=== PATIENT | female | born 1950 | race Caucasian/White ===

== ENCOUNTER 2017-02-09 14:13 | Observation (INO) | payer MEDICARE ==
[2017-02-09] MEDS ORDERED: Diltiazem IV VIAL* 125 MG in D5W 100 ML BAG* 100 ML IV ONE ×6 (16:23)
[2017-02-09] MEDS ORDERED: Diltiazem IV* 5 MG/ML 5 ML VIAL (for loading dose/IV Push) (25 MG) IV SLOW PU ONE (16:23)
[2017-02-09] MEDS ORDERED: Diltiazem DRIP* 100 MG/100 ML ADDV.BAG IVPB ONE (16:27)
[2017-02-09 16:29] LABS: Hematocrit 40 % (35-47); Hemoglobin 13.3 g/dl (12.0-16.0); Mean Corpuscular HGB Conc 33 g/dl (31-36); Mean Corpuscular Hemoglobin 31 pg (27-31); Mean Corpuscular Volume 93 fL (80-97); Mean Platelet Volume 10 um3 (7.4-10.4); Red Blood Count 4.31 10^6/ul (4.0-5.4); Red Cell Distribution Width 13 % (10.5-15); White Blood Count 11.2 10^3/ul (3.5-10.8)
[2017-02-09 16:32] LABS: Troponin I 0.01 ng/mL (<0.04)
[2017-02-09 16:44] LABS: TSH (Thyroid Stimulating Horm) 2.42 mcIU/mL (0.34-5.60)
[2017-02-09 16:45] LABS: Albumin 4.1 g/dL (3.2-5.2); Calcium 9.1 mg/dL (8.6-10.3); EGFR African American 93.4 (>60); EGFR Non-African American 72.6 (>60); Potassium 3.3 mmol/L (3.5-5.0); Total Bilirubin 0.3 mg/dL (0.2-1.0); Total Protein 7.1 g/dL (6.4-8.9)
[2017-02-09] MEDS ORDERED: Potassium Chlor TAB* 20 MEQ TAB.ER PO ONE (19:17)
[2017-02-09] MEDS ORDERED: Dextrose 50% Syringe 50 ML* 25 GM/50 ML SYRINGE IV PUSH PRN (19:18)
[2017-02-09] MEDS ORDERED: Rivaroxaban TAB(*) 10 MG PO ONE (19:22)
[2017-02-09] MEDS: acetaZOLAMIDE TAB* 250 MG PO SCH (21:00)
[2017-02-09] MEDS ORDERED: Latanoprost 0.005%* 2.5 ml BTL BOTH EYES SCH (21:00)
--- NOTE | 2017-02-09 22:02 | HP ---
HOSPITAL MEDICINE HISTORY AND PHYSICAL: DATE OF ADMISSION: 02/09/17 PRIMARY CARE PHYSICIAN: Dr. Sifuentes. ATTENDING PHYSICIAN: DO John Franco (dictation provided by Radha Mckinley NP ) CHIEF COMPLAINT: Rapid atrial fibrillation. HISTORY OF PRESENT ILLNESS: Ms. Patricia is a 67-year-old female with a past medical history of diabetes, hypertension, smoking with current 1 pack per day smoking history, who presents to the hospital today with concern for rapid atrial fibrillation. Ms. Patricia was following up with her primary care physician per routine for medication followup when it was determined that her heart rate was rapid on cardiac auscultation. The patient had an EKG in the office, which showed rapid atrial fibrillation with a heart rate of 130s. The patient was completely asymptomatic. She denied any chest pain or any palpitations. She states in recent weeks, she has been feeling well. She had recently returned from a trip to [place] with her family. While there, she had had an episode where she swallowed some water while swimming in a pool and had some chest discomfort after that, but none recently. She has no report of pain in her lower extremities. No report of shortness of breath. In the emergency room, Ms. Patricia was confirmed to be in rapid atrial fibrillation with a heart rate in the 130s. She has a mild hypokalemia. Her magnesium is normal. Troponin is normal. PAST MEDICAL HISTORY: 1. Type 2 diabetes, [id number]. 2. Hyperlipidemia. 3. Hypothyroidism. 4. Glaucoma. 5. Hypertension. 6. History of dysfunctional uterine bleeding secondary to proliferative endometrium. 7. History of right and left total knee replacement. MEDICATIONS: 1. Ranitidine 150 mg p.o. daily. 2. Ascorbic acid 500 mg p.o. daily. 3. Multivitamin with mineral 1 tab p.o. daily. 4. Metformin 500 mg p.o. daily. 5. Magnesium oxide 400 mg p.o. daily. 6. Lisinopril 40 mg p.o. q.a.m. 7. Levothyroxine 75 mcg p.o. daily. 8. Latanoprost 0.005% 1 drop both eyes at bedtime. 9. Rosuvastatin 5 mg p.o. daily. 10. [place]-3 fatty acid 1000 mg p.o. daily. 11. Coenzyme Q10 one cap p.o. daily. 12. Chantix 1 pack as directed. 13. Amlodipine 10 mg p.o. q.a.m. 14. Diamox 500 mg p.o. b.i.d. ALLERGIES: CAPTOPRIL and CIPROFLOXACIN. FAMILY HISTORY: The patient reports that her mom related to pneumonia at 63. Dad related to heart rate at 64. She has a brother who has had atrial fibrillation and a heart attack, still alive and a sister who has had a stent placed. Her healthcare proxy is her . SOCIAL HISTORY: The patient is a continued 1 pack a day smoker and she has been smoking for decades. She did quit not too long ago for several years but had resumed smoking recently. She has been started on Chantix with Dr. Sifuentes today. No report of alcohol or drug use. REVIEW OF SYSTEMS: A 14-point review of systems was completed with Ms. Patricia and all those not mentioned above were negative. PHYSICAL EXAMINATION GENERAL: Ms. Patricia is sitting up in the bed. She is in no acute distress. She is in calm and cooperative to my examination. VITAL SIGNS: Temperature 98.1, heart rate 112, respiratory rate 20, O2 saturation 96% on room air, blood pressure 132/59. LUNGS: Clear to auscultation bilaterally with no accessory muscle use and good aeration. HEART: S1, S2. No murmur, rub, or gallop and regular. ABDOMEN: Soft, nontender with bowel sounds positive x4. EXTREMITIES: No cyanosis or edema. NEURO: She is alert and oriented x3. She moves all extremities equally. There is no facial asymmetry or focal weakness. Extraocular movements are intact. SKIN: Intact. LABORATORY DATA/DIAGNOSTIC STUDIES: Sodium 139, potassium 3.3, chloride 112, serum bicarbonate 19, BUN 15, creatinine 0.79, glucose 89, lactic acid 1. Troponin 0.01. TSH 2.42. WBC 11.2, hemoglobin 13.3, hematocrit 40, platelet count 169. EKG shows rapid atrial fibrillation with heart rate about 130. ASSESSMENT: Ms. Patricia is a 67-year-old female with a past medical history of diabetes, hypertension, hyperlipidemia, who presents today to the hospital with concern for rapid atrial fibrillation. Our plans are for observation in the hospital overnight for the followin. Rapid atrial fibrillation: The patient has been admitted to the intensive care unit for titration of Cardizem drip, which was started in the emergency department. Plan to titrate that overnight and then switch to oral agents as tolerated. The patient will have a transthoracic echocardiogram tomorrow and she will be started on Eliquis and I have reviewed the risks and benefits of anticoagulation with her. Based on her CHADS2 score, she would benefit from anticoagulation for stroke prevention. I suspect that the patient's long-term smoking history has put her at risk for atrial fibrillation. She does have a low potassium and I will replete that. She is already on magnesium supplementation. We will continue with that. Her magnesium is normal. She denies any alcohol use, but does drink 2 cups of coffee per day. I have advise her that she might benefit from stopping caffeine use altogether or at least decreasing it and of course, I have advised her to stop smoking as well. 2. Type 2 diabetes. Plan to add on a hemoglobin A1c and she will have blood glucoses q.a.c. with lispro sliding scale insulin and a consistent carbohydrate diet. 3. Hypertension. Plan to hold amlodipine. Continue lisinopril as we use Cardizem to control her atrial fibrillation. 4. DVT prophylaxis with Xarelto. 5. Code status is full code. TIME SPENT: Approximately 60 minutes were spent on the admission of this patient, more than half the time spent with her at the bedside reviewing the events leading up to this hospitalization, performing the physical examination, and reviewing the plan of care. RADHA MCKINLEY NP CC: Dr. Sifuentes * [id number]/CPS #: [id number] SHANTA
--- NOTE | 2017-02-09 22:27 | ED ---
Von [place] Erika, scribed for Messi Gomez MD on 02/09/17 at 1640 . Palpitations / Dysrhythmia - HPI Summary HPI Summary: Patient is a 67-year-old female presenting to the ED with a CC of irregular heart rate of unknown onset. Patient reports she was at her PCP today for a scheduled appointment, and was told she was in A Fib. Patient does report she was recently on vacation in hot weather and noticed SOB with exertion there. She also reports she has had chest pains the in the past 2 days, and states pain "feels like it is in the lungs" and back. Pt denies chest pain today. Pt also denies palpitations. She denies similar episodes in the past. Hx HTN. - History of Current Complaint Chief Complaint: EDDysrhythmPalp Time Seen by Provider: 02/09/17 16:13 Hx Obtained From: Patient Onset/Duration: Still Present Timing: Constant Severity Currently: Moderate Character: Fast, Irregular Alleviating: Nothing Associated Signs & Symptoms: Chest Pain, Shortness of Breath - Allergy/Home Medications Allergies/Adverse Reactions: Allergies Allergy/AdvReac Type Severity Reaction Status Date / Time Captopril Allergy Intermediate Nausea And Verified 02/09/17 14:19 Vomiting Ciprofloxacin [From Cipro] Allergy Nausea Verified 02/09/17 14:19 Home Medications: Home Medications Coenzyme [id number] [Co Q-10 Plus] 1 cap PO DAILY 02/09/17 [History Confirmed 02/09/17] Magnesium Oxide (mg Supplement [Magnesium] 400 mg PO DAILY 02/09/17 [History Confirmed 02/09/17] Metformin ER (NF) 500 mg PO DAILY 02/09/17 [History Confirmed 02/09/17] Multivitamins/Minerals TAB* [Theragran/minerals TAB*] 1 tab PO DAILY 02/09/17 [ History Confirmed 02/09/17] [place]-3 Fatty Acids (Nf) [Fish Oil (NF)] 1,000 mg PO DAILY 02/09/17 [History Confirmed 02/09/17] Rosuvastatin (NF) [Crestor (NF)] 5 mg PO DAILY 02/09/17 [History Confirmed 02/09] Varenicline Tartrate [Chantix Starting M... 0.5 mg X 11 & 1 mg X 42] 1 shayne PO DAILY 02/09/17 [History Confirmed 02/09/17] PMH/Surg Hx/FS Hx/Imm Hx Endocrine/Hematology History: Reports: Hx Diabetes - TYPE 2, Hx Thyroid Disease - ON DAILY MEDS - HYPOTHYROID Cardiovascular History: Reports: Hx Hypertension - control with meds GI History: Reports: Hx Gastroesophageal Reflux Disease - CONTROL WITH MEDS Musculoskeletal History: Reports: Hx Arthritis - KNEES, Other Musculoskeletal History - LEFT KNEE REPLACEMENT - 07/08/2015 Sensory History: Reports: Hx Cataracts - BILATERAL, Hx Contacts or Glasses - READING GLASSES, Hx Glaucoma - BILATERAL Denies: Hx Hearing Aid Opthamlomology History: Reports: Hx Cataracts - BILATERAL, Hx Contacts or Glasses - READING GLASSES, Hx Glaucoma - BILATERAL - Cancer History Hx Chemotherapy: No Hx Radiation Therapy: No - Surgical History Surgery Procedure, Year, and Place: CATARACT RIGHT AND LEFT EYE-2014- [facility] Hx Anesthesia Reactions: Yes - NAUSEA Infectious Disease History: No Infectious Disease History: Denies: Traveled Outside the [place] in Last 30 Days - Family History Known Family History: Positive: Cardiac Disease, Hypertension, Diabetes Family History: Denies FHx breast cancer - Social History Alcohol Use: None Hx Substance Use: No Substance Use Type: Reports: None Hx Tobacco Use: Yes Smoking Status (MU): Heavy Every Day Tobacco Smoker Type: Cigarettes Amount Used/How Often: 1PPD 40+ Length of Time of Smoking/Using Tobacco: 40+ YEARS Have You Smoked in the Last Year: Yes Review of Systems Cardiovascular: Other - irregular and fast heart rate Positive: Chest Pain. Negative: Palpitations Positive: Shortness Of Breath All Other Systems Reviewed And Are Negative: Yes Physical Exam Triage Information Reviewed: Yes Vital Signs On Initial Exam: Initial Vitals Temp Pulse Resp BP Pulse Ox 97.8 F 106 20 130/70 100 02/09/17 14:19 02/09/17 14:19 02/09/17 14:19 02/09/17 14:19 02/09/17 14:19 Vital Signs Reviewed: Yes Appearance: Positive: Well-Appearing, No Pain Distress, Obese Skin: Positive: Warm, Skin Color Reflects Adequate Perfusion, Dry Head/Face: Positive: Normal Head/Face Inspection Eyes: Positive: Normal ENT: Positive: Normal ENT inspection Neck: Positive: Supple, Nontender Respiratory/Lung Sounds: Positive: Clear to Auscultation, Breath Sounds Present Cardiovascular: Positive: Tachycardia - with irregularly irregular rhythm Abdomen Description: Positive: Nontender, Soft Bowel Sounds: Positive: Present Musculoskeletal: Positive: Normal. Negative: Edema Left, Edema Right Neurological: Positive: Normal Psychiatric: Positive: Affect/Mood Appropriate - [place] Coma Scale Coma Scale Total: 15 Diagnostics - Vital Signs Vital Signs Temp Pulse Resp BP Pulse Ox 02/09/17 15:00 97.6 F 127 17 153/82 98 02/09/17 14:19 97.8 F 106 20 130/70 100 - Laboratory Lab Results: Lab Results 02/09/17 02/09/17 02/09/17 Range/Units 15:30 15:30 15:30 WBC 11.2 H (3.5-10.8) 10^3/ul RBC 4.31 (4.0-5.4) 10^6/ul Hgb 13.3 (12.0-16.0) g/dl Hct 40 (35-47) % MCV 93 (80-97) fL MCH 31 (27-31) pg MCHC 33 (31-36) g/dl RDW 13 (10.5-15) % Plt Count 169 (150-450) 10^3/ul MPV 10 (7.4-10.4) um3 Neut % (Auto) 61.7 (38-83) % Lymph % (Auto) 25.9 (25-47) % [place] % (Auto) 9.1 H (1-9) % Eos % (Auto) 2.4 (0-6) % Baso % (Auto) 0.9 (0-2) % Absolute Neuts (auto) 6.9 (1.5-7.7) 10^3/ul Absolute Lymphs (auto) 2.9 (1.0-4.8) 10^3/ul Absolute Monos (auto) 1.0 H (0-0.8) 10^3/ul Absolute Eos (auto) 0.3 (0-0.6) 10^3/ul Absolute Basos (auto) 0.1 (0-0.2) 10^3/ul Absolute Nucleated RBC 0 10^3/ul Nucleated RBC % 0 Sodium 139 (133-145) mmol/L Potassium 3.3 L (3.5-5.0) mmol/L Chloride 112 H (101-111) mmol/L Carbon Dioxide 19 L (22-32) mmol/L Anion Gap 8 (2-11) mmol/L BUN 15 (6-24) mg/dL Creatinine 0.79 (0.51-0.95) mg/dL Est GFR ( Amer) 93.4 (>60) Est GFR (Non-Af Amer) 72.6 (>60) BUN/Creatinine Ratio 19.0 (8-20) Glucose 89 (70-100) mg/dL Lactic Acid 1.0 (0.5-2.0) mmol/L Calcium 9.1 (8.6-10.3) mg/dL Magnesium 2.0 (1.9-2.7) mg/dL Total Bilirubin 0.30 (0.2-1.0) mg/dL AST 11 L (13-39) U/L ALT 9 (7-52) U/L Alkaline Phosphatase 94 (34-104) U/L Troponin I 0.01 (<0.04) ng/mL Total Protein 7.1 (6.4-8.9) g/dL Albumin 4.1 (3.2-5.2) g/dL Globulin 3.0 (2-4) g/dL Albumin/Globulin Ratio 1.4 (1-3) TSH 2.42 (0.34-5.60) mcIU/mL Result Diagrams: 02/09/17 15:30 02/09/17 15:30 Lab Statement: Any lab studies that have been ordered have been reviewed, and results considered in the medical decision making process. - EKG 14:27 Cardiac Rate: Tachycardia - at 131 bpm EKG Rhythm: Atrial Fibrillation - with RVR Course/Dx - Course Course Of Treatment: She was very stabvle here and was slowed with cardizem. - Diagnoses Provider Diagnoses: Atrial fibrillation with rapid ventricular response - Physician Notifications Discussed Care Of Patient With: Dr. Kebede (hospitalist) at 17:28 - agrees to admit - Critical Care Time Critical Care Time: 30-74 min Discharge - Discharge Plan Condition: Stable Disposition: ADMITTED TO [facility] documentation as recorded by the Von cee Erika accurately reflects the service I personally performed and the decisions made by , Messi Gomez MD.
[2017-02-10] MEDS ORDERED: Diltiazem DRIP* 100 MG/100 ML ADDV.BAG IVPB ONE (00:17)
[2017-02-10] MEDS: Diltiazem DRIP* 100 MG/100 ML ADDV.BAG IVPB SCH ×2 (01:51→05:15)
[2017-02-10] MEDS ORDERED: Levothyroxine TAB* 75 MCG TAB PO SCH (06:00)
[2017-02-10] MEDS: acetaZOLAMIDE TAB* 250 MG PO SCH (07:39)
[2017-02-10] MEDS ORDERED: Perflutren Lipid Microsphere* 3 ML VIAL ONE (07:58)
--- NOTE | 2017-02-10 08:56 | PN ---
Subjective Date of Service: 02/10/17 Interval History: Ms. Patricia denies complaint, including chest pain, palpitations, SOB, nausea, or abdominal pain. She is eager for discharge to home. Family History: Unchanged from Admission Social History: Unchanged from Admission Past Medical History: Unchanged from Admission Objective Active Medications: Acetazolamide (Diamox Tab*) 500 mg PO BID [facility] Ascorbic Acid (Vitamin C Tab*) 500 mg PO DAILY [facility] Dextrose (D50w Syringe 50 Ml*) 12.5 gm IV PUSH .FOR FS < 60 - SS PRN Diltiazem HCl (Cardizem Tab*) 90 mg PO Q6HR [facility] Insulin Human Lispro (Humalog*) 0 units SUBCUT AC [facility] Latanoprost (Xalatan 0.005%*) 1 drop BOTH EYES BEDTIME [facility] Levothyroxine Sodium (Synthroid Tab*) 75 mcg PO 0600 [facility] Magnesium Oxide (Magox 400 Tab*) 400 mg PO DAILY [facility] Multivitamins/Minerals (Theragran/Minerals Tab*) 1 tab PO DAILY [facility] Potassium Chloride (Klor Con Er Tab*) 40 meq PO 2300 [facility] Rivaroxaban (Xarelto(*)) 20 mg PO 1700 [facility] Vital Signs 02/09/17 02/09/17 02/09/17 18:00 18:30 18:35 Temperature 97.8 F Pulse Rate 94 117 109 Respiratory 19 24 16 Rate Blood Pressure 117/63 130/75 130/75 (mmHg) O2 Sat by Pulse 98 98 Oximetry 02/09/17 02/09/17 02/09/17 18:52 18:56 18:57 Temperature 98.1 F Pulse Rate 118 110 Respiratory 20 18 Rate Blood Pressure 132/59 108/56 (mmHg) O2 Sat by Pulse 97 97 Oximetry 02/09/17 02/09/17 02/09/17 19:00 19:15 19:49 Temperature Pulse Rate 79 104 54 Respiratory 19 20 17 Rate Blood Pressure 124/107 132/59 118/93 (mmHg) O2 Sat by Pulse 98 96 96 Oximetry 02/09/17 02/09/17 02/09/17 20:00 20:15 20:19 Temperature 98.4 F Pulse Rate 96 99 Respiratory 18 27 19 Rate Blood Pressure 111/60 82/30 128/76 (mmHg) O2 Sat by Pulse 95 95 Oximetry 05/17/17 05/17/17 05/17/17 20:30 20:45 20:49 Temperature Pulse Rate 72 Respiratory 21 21 Rate Blood Pressure 141/80 138/89 (mmHg) O2 Sat by Pulse 98 Oximetry 02/09/17 02/09/17 02/09/17 21:00 21:15 21:30 Temperature Pulse Rate 73 98 74 Respiratory 20 21 21 Rate Blood Pressure 120/76 137/99 137/93 (mmHg) O2 Sat by Pulse 98 97 97 Oximetry 02/09/17 02/09/17 02/09/17 21:45 22:00 22:15 Temperature Pulse Rate 96 64 86 Respiratory 20 19 22 Rate Blood Pressure 130/78 113/68 133/81 (mmHg) O2 Sat by Pulse 98 96 95 Oximetry 02/09/17 02/09/17 02/09/17 22:30 22:45 22:50 Temperature Pulse Rate 87 Respiratory 20 21 Rate Blood Pressure 117/57 114/69 (mmHg) O2 Sat by Pulse 94 Oximetry 02/09/17 02/09/17 02/09/17 23:00 23:15 23:30 Temperature Pulse Rate 108 58 Respiratory 19 20 Rate Blood Pressure 112/74 127/63 113/61 (mmHg) O2 Sat by Pulse 94 94 Oximetry 02/09/17 02/10/17 02/10/17 23:51 00:00 00:01 Temperature 97.4 F Pulse Rate 82 84 Respiratory 19 19 16 Rate Blood Pressure 114/51 (mmHg) O2 Sat by Pulse 96 96 Oximetry 02/10/17 02/10/17 02/10/17 00:28 00:30 01:00 Temperature Pulse Rate 113 93 73 Respiratory 26 19 19 Rate Blood Pressure 120/58 110/75 (mmHg) O2 Sat by Pulse 95 97 94 Oximetry 02/10/17 02/10/17 02/10/17 01:30 01:56 02:00 Temperature Pulse Rate 82 72 Respiratory 18 20 18 Rate Blood Pressure 101/60 112/68 (mmHg) O2 Sat by Pulse 95 93 Oximetry 02/10/17 02/10/17 02/10/17 02:30 03:00 03:30 Temperature Pulse Rate 77 72 64 Respiratory 19 20 19 Rate Blood Pressure 98/56 104/64 107/62 (mmHg) O2 Sat by Pulse 93 96 96 Oximetry 02/10/17 02/10/17 02/10/17 03:49 03:59 04:00 Temperature 98.2 F Pulse Rate 74 Respiratory 16 17 Rate Blood Pressure 115/61 (mmHg) O2 Sat by Pulse 97 Oximetry 02/10/17 02/10/17 02/10/17 04:30 04:48 05:00 Temperature Pulse Rate 72 75 Respiratory 18 19 18 Rate Blood Pressure 112/58 106/57 (mmHg) O2 Sat by Pulse 97 95 Oximetry 02/10/17 02/10/17 02/10/17 05:30 05:43 06:00 Temperature Pulse Rate 100 78 Respiratory 16 18 18 Rate Blood Pressure 110/70 112/75 (mmHg) O2 Sat by Pulse 95 95 Oximetry 02/10/17 02/10/17 02/10/17 06:30 07:00 07:24 Temperature 97.7 F Pulse Rate 65 90 Respiratory 18 20 Rate Blood Pressure 107/56 105/66 (mmHg) O2 Sat by Pulse 94 96 Oximetry 02/10/17 02/10/17 02/10/17 07:30 07:50 08:00 Temperature Pulse Rate 74 104 Respiratory 18 20 21 Rate Blood Pressure 112/68 120/76 (mmHg) O2 Sat by Pulse 95 95 Oximetry Oxygen Devices in Use Now: None Appearance: Female sitting up in chair in NAD Eyes: No Scleral Icterus Ears/Nose/Mouth/Throat: Mucous Membranes Moist Neck: Trachea Midline Respiratory: Symmetrical Chest Expansion and Respiratory Effort, Clear to Auscultation Cardiovascular: NL Sounds; No Murmurs; No JVD, No Edema Abdominal: NL Sounds; No Tenderness; No Distention Lymphatic: No Cervical Adenopathy Extremities: No Edema Skin: No Rash or Ulcers Neurological: Alert and Oriented x 3, NL Muscle Strength and Tone Nutrition: Taking PO's Result Diagrams: 02/09/17 15:30 02/09/17 15:30 Additional Lab and Data: Lab Results 02/09/17 02/09/17 02/09/17 Range/Units 15:30 15:30 15:30 WBC 11.2 H (3.5-10.8) 10^3/ul RBC 4.31 (4.0-5.4) 10^6/ul Hgb 13.3 (12.0-16.0) g/dl Hct 40 (35-47) % MCV 93 (80-97) fL MCH 31 (27-31) pg MCHC 33 (31-36) g/dl RDW 13 (10.5-15) % Plt Count 169 (150-450) 10^3/ul MPV 10 (7.4-10.4) um3 Neut % (Auto) 61.7 (38-83) % Lymph % (Auto) 25.9 (25-47) % [place] % (Auto) 9.1 H (1-9) % Eos % (Auto) 2.4 (0-6) % Baso % (Auto) 0.9 (0-2) % Absolute Neuts (auto) 6.9 (1.5-7.7) 10^3/ul Absolute Lymphs (auto) 2.9 (1.0-4.8) 10^3/ul Absolute Monos (auto) 1.0 H (0-0.8) 10^3/ul Absolute Eos (auto) 0.3 (0-0.6) 10^3/ul Absolute Basos (auto) 0.1 (0-0.2) 10^3/ul Absolute Nucleated RBC 0 10^3/ul Nucleated RBC % 0 Sodium 139 (133-145) mmol/L Potassium 3.3 L (3.5-5.0) mmol/L Chloride 112 H (101-111) mmol/L Carbon Dioxide 19 L (22-32) mmol/L Anion Gap 8 (2-11) mmol/L BUN 15 (6-24) mg/dL Creatinine 0.79 (0.51-0.95) mg/dL Est GFR ( Amer) 93.4 (>60) Est GFR (Non-Af Amer) 72.6 (>60) BUN/Creatinine Ratio 19.0 (8-20) Glucose 89 (70-100) mg/dL Lactic Acid 1.0 (0.5-2.0) mmol/L Calcium 9.1 (8.6-10.3) mg/dL Magnesium 2.0 (1.9-2.7) mg/dL Total Bilirubin 0.30 (0.2-1.0) mg/dL AST 11 L (13-39) U/L ALT 9 (7-52) U/L Alkaline Phosphatase 94 (34-104) U/L Troponin I 0.01 (<0.04) ng/mL Total Protein 7.1 (6.4-8.9) g/dL Albumin 4.1 (3.2-5.2) g/dL Globulin 3.0 (2-4) g/dL Albumin/Globulin Ratio 1.4 (1-3) TSH 2.42 (0.34-5.60) mcIU/mL Microbiology and Other Data: Microbiology 02/09/17 19:46 Nasal Screen MRSA (PCR)([facility]) - Final Nasal Mrsa Negative Assess/Plan/Problems-Billing Assessment: Ms. Patricia is a 67 yo female with a PMH of smoking, DM, and HTN who was admitted on 02/09/17 with new afib with rapid ventricular response. - Patient Problems (1) Afib Comment: Rate controlled, remains in afib and continues to be asymptomatic. Echo shows intact wall motion/EF and no valvular abnormalities. Plan to switch to cardizem po at high dose as she needed 17mg/hr on cardizem gtt overnight. Continue xarelto. No indication for cardioversion as is asymptomatic. Will need at least 4 weeks of anticoagulation prior to any attempt at cardioversion given that the onset of afib is unknown. Follow up with cardiology. (2) HTN (hypertension) Comment: Hold lisinopril and amlodipine with acute switch to cardizem. Recommend to add back at least low dose lisinopril given hx of DM if possible at follow up with PCP if BP stable on cardizem. (3) Type II diabetes mellitus Comment: HgbA1c pending. Continue lispro SSI coverage with meals while inpatient and resume oral meds at discharge. (4) Cigarette nicotine dependence Comment: Smoking cessation strongly encouraged. Patient has prescription for chantix per PCP, which has worked well for her in the past. (5) DVT prophylaxis Comment: xarelto. (6) Full code status Status and Disposition: Switched to OBV. Discharge to home.
[2017-02-10] MEDS ORDERED: Ascorbic Acid TAB* 500 MG PO SCH (09:00)
[2017-02-10] MEDS ORDERED: amLODIPine TAB* 5 MG PO SCH (09:00)
[2017-02-10] MEDS ORDERED: Magnesium Oxide TAB* 400 MG PO SCH (09:00)
[2017-02-10] MEDS ORDERED: Multivitamins/Minerals TAB PO SCH (09:00)
[2017-02-10] MEDS ORDERED: Lisinopril TAB* 10 MG PO SCH (09:00)
[2017-02-10] MEDS: Diltiazem TAB* 30 MG PO SCH ×2 (09:13→12:04)
[2017-02-10] MEDS: Insulin LISPRO* 1 UNITS UNIT SUBCUT SCH ×2 (09:14→13:08)
--- NOTE | 2017-02-10 09:35 | ECHO ---
Patient: SIVAKUMAR CABALLERO [facility] Rec#: [id number] : 1950 Date: 02/10/2017 Age: 67y Height: 160.02 cm / 63.0 in Weight: 98.88 kg / 217.9 lbs Sex: F BSA: 2.01 Room#: ICU 1 Admit Date#: 02/09/2017 Type: Inpatient Referring: Radha Mckinley NP Reading: Albina Munoz MD Accessories Repairer: Petra Huffman RDCS,RDMS CC: Anel Sifuentes MD Transthoracic Echocardiogram Indication: Afib BP: 107/56 HR: 82 Rhythm: A-Fib Indications Atrial Fibrillation Findings History: HTN, HLD, DM, smoker Technical Comments: The study is technically limited due to the patient's smoking history. Completed 904 Left Ventricle: The left ventricular chamber size is normal. Moderate concentric left ventricular hypertrophy is observed. Global left ventricular wall motion and contractility are within normal limits. The estimated ejection fraction is 55-60%. The assessment of diastolic function is non-diagnostic. Left Atrium: The left atrium is mild to moderately dilated. Right Ventricle: The right ventricular chamber size and systolic function are within normal limits. The right ventricle wall thickness is moderately increased. Right Atrium: The right atrium is mild to moderately dilated. A patent foramen ovale is not demonstrated by agitated contrast. There is evidence of an atrial septal aneurysm. Aortic Valve: The aortic valve leaflets are mildly thickened. There is aortic annular calcification. There is no evidence of aortic regurgitation. There is no evidence of aortic stenosis. Mitral Valve: There is mitral annular calcification. There is a trace of mitral regurgitation. There is no evidence of mitral stenosis. Tricuspid Valve: The tricuspid valve leaflets are not thickened. There is trace tricuspid regurgitation. Unable to estimate the right ventricular systolic pressure. Pulmonic Valve: The pulmonic valve structure is not well visualized. There is no evidence of pulmonic regurgitation. Pericardium: There is no significant pericardial effusion. Aorta: The ascending aorta is not well visualized. There is no dilatation of the aortic arch. The aortic root is normal in size. There is plaque visualized in the descending aorta. Pulmonary Artery: The main pulmonary artery is not well visualized. Venous: The inferior vena cava appears normal in size. There is a greater than 50% respiratory change in the inferior vena cava dimension. Contrast: Definity was used to optimize study. A total of 4 ml was used Summary: There was not any prior study for comparison. Conclusions The left ventricular chamber size is normal. Moderate concentric left ventricular hypertrophy is observed. Global left ventricular wall motion and contractility are within normal limits. The estimated ejection fraction is 55-60%. The assessment of diastolic function is non-diagnostic. The left atrium is mild to moderately dilated. The right atrium is mild to moderately dilated. A patent foramen ovale is not demonstrated by agitated contrast. There is evidence of an atrial septal aneurysm. There is a trace of mitral regurgitation. There is trace tricuspid regurgitation. Measurements Name Value Normal Range RVIDd (AP) 2D 2.8 cm (0.9 - 2.6) RAd ISD 4CH 6 cm (3.4 - 4.9) RA (A4C)W 3 cm (2.9 - 4.6) IVSd (2D) 1.3 cm (0.6 - 1) LVPWd (2D) 1.5 cm (0.6 - 1) LVIDd (2D) 4.6 cm (3.6 - 5.4) LVIDs (2D) 3.2 cm - LV FS (2D) 30 % (25 - 45) Aortic Annulus 2 cm (1.4 - 2.6) Ao root diameter (2D) 2.2 cm (2.1 - 3.5) Aortic arch 2.8 cm (1.8 - 3.4) LA dimension (AP) 2D 4.9 cm (2.3 - 3.8) LAd ISD 4CH 6.5 cm (2.9 - 5.3) LA ISD 4CH W 6 cm (2.5 - 4.5) Name Value Normal Range LA ESV SP 4CH (A/L) 103.09 ml - LA ESV SP 2CH (A/L) 49.55 ml - LA ESV BP (A/L) 82.1 ml - LA ESV BP (A/L) index 41 ml/m2 - LA ESV SP 4CH (MOD) 95.82 ml - LA ESV SP 2CH (MOD) 47.55 ml - Name Value Normal Range MV E-wave Vmax 1.2 m/sec - MV deceleration time 226 msec - LV lateral e' Vmax 0.12 m/sec - LV E:e' lateral ratio 10 ratio - Name Value Normal Range AV Vmax 1.3 m/sec - AV peak gradient 7 mmHg - LVOT Vmax 0.9 m/sec - LVOT peak gradient 3.2 mmHg - LISSETTE Vmax 0.7 m/sec - Name Value Normal Range MV Vmax 1.3 m/sec - MV VTI 24.7 cm - MV peak gradient 7 mmHg - MV mean gradient 2.4 mmHg - MV PHT 70 msec - MVA (PHT) 3.1 cm2 - Name Value Normal Range RAP 8 mmHg - IVC diameter 2.1 cm - Name Value Normal Range PV Vmax 1.1 m/sec - PV peak gradient 5 mmHg -
[2017-02-10 14:06] VITALS: BP 117/56
[2017-02-10] MEDS ORDERED: Rivaroxaban TAB(*) 20 MG TAB PO SCH (17:00)
[2017-02-10] MEDS ORDERED: Rivaroxaban TAB(*) 10 MG PO ONE (19:21)
[2017-02-10] MEDS ORDERED: Potassium Chlor TAB* 20 MEQ TAB.ER PO SCH (23:00)
--- NOTE | 2017-02-11 02:01 | DS ---
[facility] MEDICINE DISCHARGE SUMMARY: DATE OF ADMISSION: 02/09/17 DATE OF DISCHARGE: 02/10/17 PRIMARY CARE PHYSICIAN: Dr. Sifuentes. ATTENDING PHYSICIAN: Cameron Chamorro MD *(dictation provided by Radha Mckinley NP ) PRIMARY DIAGNOSIS: New onset rapid atrial fibrillation. SECONDARY DIAGNOSES: 1. Type 2 diabetes, non-insulin dependent. 2. Hypertension. 3. Hyperlipidemia. 4. History of cigarette smoking. 5. Glaucoma. 6. History of dysfunctional uterine bleeding secondary to proliferative endometrium. 7. 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 MEDICATIONS AT THE TIME OF DISCHARGE: 1. Xarelto 20 mg p.o. daily. 2. Ranitidine 150 mg p.o. daily. 3. Ascorbic acid 500 mg p.o. daily. 4. Diltiazem CD 240 mg p.o. q.p.m. 5. Multivitamin with mineral 1 tab p.o. daily. 6. Metformin 500 mg p.o. daily. 7. Magnesium oxide 400 mg p.o. daily. 8. Levothyroxine 75 mcg p.o. daily. 9. Latanoprost 0.005% 1 drop both eyes at bedtime. 10. Rosuvastatin 5 mg p.o. daily. 11. [place]-3 fatty acid 1000 mg p.o. daily. 12. Co-enzyme Q10 1 cap p.o. daily. 13. Chantix as directed. 14. Diamox 500 mg p.o. b.i.d. Hold amlodipine and lisinopril. HOSPITAL COURSE: Ms. Patricia is a 67-year-old female with past medical history of diabetes, hypertension and hyperlipidemia as well as chronic cigarette smoking who presented to the hospital on 02/09/17 with concern for rapid atrial fibrillation. The patient had been at her primary care physician's office for routine visit when it was discovered that she had a rapid heart rate and then EKG revealed rapid atrial fibrillation. Ms. Patricia was admitted to the hospital. She was placed on a Cardizem drip. She required high dose of Cardizem to provide adequate rate control. She has been switched over now to oral Cardizem and will need 360 mg p.o. daily of the extended acting Cardizem based on the clinical course thus far. Her blood pressure has been stable on this dose. She has no lightheadedness or dizziness during this hospitalization having held her amlodipine and lisinopril due to the need to add on Cardizem. I think she would benefit from resumption at least low dose lisinopril and I will be referring this back to the primary care physician on reevaluation of her blood pressure as outpatient. The patient had a transthoracic echocardiogram that showed an intact ejection fraction, no wall motion abnormalities and no valvular abnormalities. Ms. Patricia has also been started on Xarelto for stroke prevention given her concomitant history of diabetes, hypertension, hyperlipidemia and her age of 67. Ms. Patricia is medically stable for discharge to home. She remains in atrial fibrillation, but she just had good rate control on the current dose of Cardizem. She has been strongly encouraged to stop smoking as I think that her underlying prolonged smoking history likely is her greatest risk factor for development of atrial fibrillation and also her greatest health risk overall. I have also strongly encouraged her to continue to follow up with Dr. Sifuentes regarding close management of her diabetes and hypertension. DISPOSITION: Home. DIET: Consistent carbohydrate. ACTIVITY: As tolerated. FOLLOWUP PLANS: Please follow up with Dr. Sifuentes. The patient has been instructed to call within 3 to 5 days for an appointment. TIME SPENT: Approximately 60 minutes was spent in the discharge of this patient , more than half that time was spent with her at the bedside reviewing the events leading up to this hospitalization, performing the physical examination, and reviewing the plan of care. RADHA MCKINLEY NP CC: Dr. Sifuentes* [id number]/[facility] #: [id number] SHANTA
== END 2017-02-10 14:50 | disposition home or self-care (01) ==
LOC: ED 14:13 → ICU 17:33 → INTOOBSV 17:33
PROVIDERS: ADMIT Hospitalist; ATTEND Internal Medicine
DX: I48.91 Unspecified atrial fibrillation (principal); E11.9 Type 2 diabetes mellitus without complications; I10 Essential (primary) hypertension; E78.5 Hyperlipidemia, unspecified; Z96.653 Presence of artificial knee joint, bilateral; H40.9 Unspecified glaucoma; I44.4 Left anterior fascicular block; I51.7 Cardiomegaly; F17.210 Nicotine dependence, cigarettes, uncomplicated; Z79.84 Long term (current) use of oral hypoglycemic drugs; Z79.899 Other long term (current) drug therapy; Z88.1 Allergy status to other antibiotic agents; Z88.8 Allergy status to other drugs, medicaments and biological substances
CPT/HCPCS: 36415; 80053; 83036; 83605; 83735; 84443; 84484; 85025; 85610; 87641; 93005; 93306; 96374; 96376; 99291; A9270-GY; C8929; G0378

== ENCOUNTER 2024-08-30 11:30 | Observation (INO) ==
[~2024-08-30 11:30] MED LIST: Metoclopramide 5 MG/ML VIAL (10 mg) IV PRN; NS 0.45% 1000 ml BAG 1,000 ML IV SCH; Naloxone 0.4 mg VIAL 0.4 mg/ml 1 ml VIAL IV PRN; Ondansetron 4 mg VIAL 2 MG/ML 2 ml VIAL IV PRN
[2024-08-30 12:29] LABS: Rapid COVID-19 Molecular Undetected (Undetected)
[2024-08-30] MEDS ORDERED: Tranexamic Acid 1 GM/100ML BAG 2,000 MG/200 ML BAG IV ONE (12:59)
[2024-08-30] MEDS ORDERED: ceFAZolin 2 GM PREMIX 2 GM/50 ML BAG ONE (12:59)
[2024-08-30] MEDS: Lactated Ringers 1000 ml BAG 1,000 ML IV SCH ×2 (13:21→18:30)
[2024-08-30] MEDS: Buffered Lidocaine 1% SYRIN 1 ml INTRADERM ONE (13:21)
[2024-08-30] MEDS ORDERED: ROPIVACAINE 5 MG/ML 30 ML BTL (0.5%) ONE (13:54)
[2024-08-30] MEDS ORDERED: fentaNYL 100 mcg/2 ml 50 MCG/ML VIAL ONE ×3 (13:57→17:24)
[2024-08-30] MEDS ORDERED: Midazolam 2 mg/2 ml VIAL 1 mg/ml 2 ml VIAL (2 mg) ONE (13:58)
[2024-08-30] MEDS ORDERED: Rocuronium 50 mg VIAL 10 mg/ml 5 ml VIAL (50 mg) ONE (14:01)
[2024-08-30] MEDS ORDERED: Metoprolol Tartrate 5 mg VIAL 5 ml VIAL (1 mg/ml) ONE (15:05)
[2024-08-30] MEDS ORDERED: Dexamethasone IV 4 MG/ML VIAL 1 ml VIAL ONE (15:08)
[2024-08-30] MEDS ORDERED: Ondansetron 4 mg VIAL 2 MG/ML 2 ml VIAL ONE (15:08)
[2024-08-30] MEDS ORDERED: HYDROmorphone 0.5 MG/0.5 ML SYRINGE ONE ×3 (15:12→16:00)
[2024-08-30] MEDS ORDERED: Lactulose 30 ml UDC PO PRN (15:25)
[2024-08-30] MEDS ORDERED: Morphine 2 MG/ML SYRINGE IV PRN (15:25)
[2024-08-30] MEDS ORDERED: Ondansetron ODT 4 mg TAB 4 MG TAB PO PRN (15:25)
[2024-08-30] MEDS ORDERED: Calcium Carb (TUMS) 500 mg CHEW TAB PO PRN (15:25)
[2024-08-30] MEDS ORDERED: Ondansetron 4 mg VIAL 2 MG/ML 2 ml VIAL IV PRN (15:25)
[2024-08-30] MEDS ORDERED: Magnesium Hydroxide LIQ 30 ML UDC PO PRN (15:25)
[2024-08-30] MEDS ORDERED: HYDROmorphone 1 MG/1 ML SYRINGE ONE (17:11)
[2024-08-30] MEDS: fentaNYL 100 mcg/2 ml 50 MCG/ML VIAL IV PRN (17:33)
[2024-08-30] MEDS: Magnesium Hydroxide LIQ 30 ML UDC PO SCH (22:26)
[2024-08-30] MEDS: Nystatin TOP POWDER 15 GM BTL TOPICAL SCH (22:26)
[2024-08-30] MEDS: ceFAZolin 2 GM PREMIX 2 GM/50 ML BAG IV SCH (22:36)
[2024-08-31] MEDS: Acetaminophen IV 1 GM/100ML 1,000 MG/100 ML BAG IV ONE (02:43)
[2024-08-31 06:38] LABS: Hematocrit 39.2 % (35-45); Hemoglobin 13.4 g/dL (11.5-14.3); Platelet Count 177 10^3/uL (150-450)
[2024-08-31 06:57] LABS: Calcium 8.7 mg/dL (8.6-10.3); Creatinine, Serum 0.82 mg/dL (0.51-0.95); Potassium 5.5 mmol/L (3.5-5.0)
[2024-08-31] MEDS ORDERED: Vitamin THERAPEUTIC TAB PO SCH (09:00)
[2024-08-31] MEDS: SODIUM ZIRCONIUM CYCLOSILICATE 5 GM PACKET PO ONE (11:37)
[2024-08-31 14:48] VITALS: BP 134/56
[2024-08-31 15:12] LABS: Calcium 8.9 mg/dL (8.6-10.3); Creatinine, Serum 0.74 mg/dL (0.51-0.95); Potassium 4.5 mmol/L (3.5-5.0); eGFR CKD-EPI 84.8 (>60)
== END 2024-08-31 15:52 | disposition home or self-care (01) ==
LOC: SSU 11:30 → OR 11:30
PROVIDERS: ADMIT Orthopaedic Surgery Adult Reconstructive Orthopaedic Surgery; ATTEND Orthopaedic Surgery Adult Reconstructive Orthopaedic Surgery